=== PATIENT | female | born 1965 | race African-American/Black ===

== ENCOUNTER 2016-12-06 17:01 | Emergency (ER) | payer OTHER ==
--- NOTE | ~2016-12-06 | EKG ---
PATIENT: GLADYS KILGORE UNIT #: [id number] Ventricular Rate: 74 BPM Atrial Rate: 74 BPM P-R Interval: 124 ms QRS Duration: 90 ms Q-T Interval: 372 ms QTC Calculation(Bezet): 412 ms P Webb: 53 degrees Calculated R Webb: 40 degrees Calculated T Webb: 16 degrees Diagnosis Line: Normal sinus rhythm Diagnosis Line: Normal ECG Diagnosis Line: When compared with ECG of 09-MAY-2014 17:57, Diagnosis Line: No significant change was found Diagnosis Line: Confirmed by NAVYA TYSON MD ([id number]) on 12/07/2016 Diagnosis Line: 4:44:42 PM INTERPRETING MD: MARBELLA SNYDER
--- NOTE | ~2016-12-06 | CR72 ---
[facility] A Service of [facility] RADIOLOGY TEXT RESULTS PATIENT: GLADYS KILGORE LOCATION: [facility] : 67 UNIT #: [id number] AGE: [address]: Vic Roy MD SEX: F ORDER DR: [id number] [facility] [address] [place], [place] [address] [id number] E MR#: [id number] Acc #: [id number] NAME: GLADYS KILGORE : 1965 SEX: F STUDY DATE/TIME: 12/06/2016 17:15 UNIT: [facility] ROOM: STUDY DESCRIPTION: CR Chest Single View Portable Attending Physician: Vic Roy M.D. Referring Physician: [facility] Ordering Physician: Vic Roy M.D. Primary Care Physician: [facility] MEDICAL IMAGING REPORT This report is preliminary unless electronic signature is present EXAM Portable chest x-ray, 12/06/2016 HISTORY Chest pain. Left chest pain, weakness, dizziness since 11/25/2015. Weak. FINDINGS AP radiograph of the chest is presented. Comparison 05/09/2014. No acute appearing bony abnormality. Mild cardiac enlargement stable. Lungs moderately well inflated. There is no indication of acute pulmonary disease. No pleural effusion or pneumothorax. No suspicious nodule. Dictated by... Carlos Hills M.D. THIS IS AN ELECTRONICALLY VERIFIED REPORT Carlos Hills M.D. at 12/08/2016 8:22 PM BASIL/elpidio TD: 12/06/2016 22:44 JOB #: [id number] MEDICAL IMAGING REPORT COPY
[2016-12-06 15:59] LABS: BASOPHIL% 0.4 % (0-2.5); EOSINOPHIL# 0.1 X10e3 (0-0.7); EOSINOPHIL% 0.8 % (0.0-7.0); HEMATOCRIT 39.1 % (35.0-45.0); HEMOGLOBIN 12.6 gm/dL (12.0-16.0); LYMPHOCYTE# 3.2 X10e3 (1.0-3.5); LYMPHOCYTE% 37.7 % (17.0-45.0); MEAN CELL VOLUME 96.4 FL (83-96); MEAN CORPUSCULAR HEMOGLOBIN 31.2 PG (28-34); MEAN CORPUSCULAR HGB CONC 32.3 g/dL (30-36); MEAN PLATELET VOLUME 9.5 FL (6.5-11.5); MONOCYTE# 0.5 X10e3 (0-1.0); MONOCYTE% 6.4 % (3.0-12.0); NEUTROPHIL# 4.6 X10e3 (1.5-7.1); NEUTROPHIL% 54.7 % (40-75); PLATELET COUNT 203 X10e3 (140-420); RED BLOOD COUNT 4.05 X10e (3.90-5.30); RED CELL DISTRIBUTION WIDTH 13.6 % (11.0-15.5); WHITE BLOOD COUNT 8.5 X10e3 (4.0-10.5)
[2016-12-06 16:01] LABS: DIFF IND NO
[2016-12-06 16:18] LABS: URINE SOURCE CLEAN CATCH
[2016-12-06 16:30] LABS: URINE APPEARANCE CLEAR; URINE BILIRUBIN NEG (NEG); URINE BLOOD NEG (NEG); URINE COLOR YELLOW; URINE GLUCOSE NEG (NEG); URINE KETONE NEG (NEG); URINE LEUKOCYTE ESTERASE TRACE (NEG); URINE NITRATE NEG (NEG); URINE PH 7.5 (5-8); URINE PROTEIN NEG (NEG); URINE SPECIFIC GRAVITY 1.024 (1.003-1.035)
[2016-12-06 16:34] LABS: URINE BACTERIA AUWI NEG (NEGATIVE); URINE SQUAMOUS EPITHELIAL CELL FEW /[HPF]; UWBCS1 AUWI 0-2 (0-5)
[2016-12-06 16:37] LABS: ALBUMIN SERUM 3.3 g/dL (3.5-5.0); ALKALINE PHOSPHATASE 78 U/L (32-92); ALT (SGPT) 28 U/L (10-40); AST (SGOT) 13 U/L (10-42); BILIRUBIN, DIRECT 0.1 mg/dL (0.0-0.2); BILIRUBIN,INDIRECT 0.4 mg/dL (0.0-0.9); BILIRUBIN,TOTAL 0.5 mg/dL (0.2-2.0); BLOOD UREA NITROGEN 14 mg/dL (9-23); BUN/CREATININE RATIO 15.55; CALCIUM SERUM 8.6 mg/dL (8.4-10.2); CARBON DIOXIDE 30 mmol/L (22-31); CHLORIDE 97 mmol/L (100-111); CREATININE SERUM 0.9 mg/dL (0.6-1.4); GLOM FILT RATE Estimated ABOVE60 mL/min (>60); GLUCOSE FASTING 197 mg/dL (70-110); POTASSIUM 3.6 mmol/L (3.5-5.1); PROTEIN TOTAL SERUM 7.3 g/dL (6.0-8.3); SODIUM 134 mmol/L (135-145)
[2016-12-06 16:45] LABS: CULTURE INDICATED? NO
[2016-12-06 16:56] LABS: POC - CKMB <1.0 ng/mL (0.0-7.9); POC - TROPONIN <0.05 ng/mL (<=0.05)
[~2016-12-06 17:01] MED LIST: ADVAIR INH; ALBUTEROL17 GM INH; ALBUTEROL17 GM NEB; ANTIVERT12.5 MG PO; BACTRIM DS TABL1 TA1 PO; COMBIVENT INH14.7 GM INH; DOXYCYCLIN25 MG/5 ML PO; IBUPROFEN PO; LEVAQUIN PO; LORTAB 2.5/5001 TAB PO; PHENERGAN PO; ROBITUSSIN A-C-S1 ML PO; SINGULAIR; SINGULAIR PO; TETRACYCLINE PO; VICODIN PO; ZITHROMAX PO; ZITHROMAX1 G/PKT PO
== END 2016-12-06 18:20 | disposition home or self-care (01) ==
LOC: CED 17:01
PROVIDERS: Emergency Medicine; Student in an Organized Health Care Education/Training Program
DX: F45.0 Somatization disorder (principal); K21.9 Gastro-esophageal reflux disease without esophagitis; I10 Essential (primary) hypertension; J45.909 Unspecified asthma, uncomplicated; R73.9 Hyperglycemia, unspecified; Z88.0 Allergy status to penicillin; Z88.1 Allergy status to other antibiotic agents
CPT/HCPCS: 71010; 80048; 80076; 81003; 82553; 82947; 84484; 85025; 93005; 96361; 96374; 99284